=== PATIENT | male | born 1980 | race Caucasian/White ===

== ENCOUNTER 2016-08-03 14:45 | Emergency (ER) | payer OTHER, MEDICARE ==
[~2016-08-03] VITALS: Ht 160 cm; Wt 99.8 kg
--- NOTE | 2016-08-03 16:45 | ED GENERAL ADULT ---
History of Present Illness General Chief Complaint: Foot or Ankle Injury Stated Complaint: L FOOT INJURY Vital Signs & Intake/Output Vital Signs & Intake/Output Vital Signs Date Time Temp Pulse Resp B/P Pulse O2 O2 Flow FiO2 Ox Delivery Rate 08/03 1821 97.3 78 18 113/61 95 Room Air 08/03 1812 97.6 08/03 1648 96 08/03 1527 97.6 77 18 105/68 97 Room Air Allergies Coded Allergies: No Known Allergies (08/03/16) Reconcile Medications Ibuprofen 600 MG TABLET 1 TAB PO TID PRN PAIN with food Triage Note: PT REPORTING DISCOMFORT ON HIS LEFT FOOT. UNABLE TO OBTAIN CLEAR HX SECONDARY TO POOR COGNITION. PT SUFFERS OF TRISOMY 21. Past History Travel History Traveled to [place] past 21 day No Medical History Neurological: TRISOMY 21 Psychosocial History What is your primary language Swedish Tobacco Use: Never used Departure Departure Condition: Stable Referrals: ABDIEL PARRY MD (PCP/Family) Departure Forms: Customer Survey General Discharge Information Prescriptions: Current Visit Scripts Ibuprofen 1 TAB PO TID PRN PAIN #21 TAB with food
--- NOTE | 2016-08-03 16:48 | ED UPPER/LOWER EXTREMITY COMPL ---
History of Present Illness General Chief Complaint: Foot or Ankle Injury Stated Complaint: L FOOT INJURY Source: patient Exam Limitations: physical impairment Vital Signs & Intake/Output Vital Signs & Intake/Output Vital Signs Date Time Temp Pulse Resp B/P Pulse O2 O2 Flow FiO2 Ox Delivery Rate 08/03 1821 97.3 78 18 113/61 95 Room Air 08/03 1812 97.6 08/03 1648 96 08/03 1527 97.6 77 18 105/68 97 Room Air Allergies Coded Allergies: No Known Allergies (08/03/16) Reconcile Medications Ibuprofen 600 MG TABLET 1 TAB PO TID PRN PAIN with food Triage Note: PT REPORTING DISCOMFORT ON HIS LEFT FOOT. UNABLE TO OBTAIN CLEAR HX SECONDARY TO POOR COGNITION. PT SUFFERS OF TRISOMY 21. Triage Nurses Notes Reviewed? yes Onset: Abrupt Duration: constant Timing: single episode today Severity: moderate Severity Numbers: 5 HPI: Patient is a 36-year-old male with a past medical history of mental retardation who presents to emergency room with caregiver in which there is no mechanism injury noted by staff members however patient is complaining of acute onset today after waking up of left ankle and left foot pain. There is a noticeable limp with ambulation. Patient denies any knee pain and cannot offer mechanism of injury or how the incident had occurred. No skin laceration was noted no medications were given prior to arrival (SHAI SMITH) Past History Travel History Traveled to [place] past 21 day No Medical History Any Pertinent Medical History? see below for history Neurological: TRISOMY 21 Surgical History Surgical History: non-contributory Psychosocial History What is your primary language Arabic Tobacco Use: Never used Family History Hx Contributory? No (SHAI SMITH) Review of Systems Review of Systems Constitutional: Reports: no symptoms. EENTM: Reports: no symptoms. Respiratory: Reports: no symptoms. Cardiovascular: Reports: no symptoms. Gastrointestinal/Abdominal: Reports: no symptoms. Genitourinary: Reports: no symptoms. Musculoskeletal: Reports: see HPI, joint pain. Skin: Reports: no symptoms. Neurological/Psychological: Reports: no symptoms. Hematologic/Endocrine: Reports: no symptoms. Immunological: Reports: no symptoms. All Other Systems: Reviewed and Negative (SHAI SMITH) Physical Exam Physical Exam General Appearance: no apparent distress, alert, comfortable Neurologic/Tendon: normal sensation, normal motor functions, normal tendon functions, responds to pain, no evidence tendon injury Skin: intact, normal color, warm/dry Comments: Well-developed well-nourished patient in no apparent distress. HEENT: Atraumatic, extraocular motion intact Neck: Supple, FROM, no lymphadenopathy Back: FROM, Nontender Extremities: Left knee nontender full active range of motion normal inspection Left ankle normal inspection generalized point tenderness noted Left foot medial aspect of foot and plantar aspect of foot noted tenderness Pedal pulse +2 Left lower extremity dermatomes intact Neuro: Alert and oriented Skin: Warm & dry;No appreciable rash on exposed skin Psych: Mood affect normal, normal memory normal judgment. (SHAI SMITH) Progress Differential Diagnosis: arterial insufficiency, compartment syndrome, contusion, dislocation, DVT, fracture, gout, septic arthritis, sprain, tendon injury Plan of Care: Orders Procedure Date/time Status XRY-FOOT COMPLETE, LEFT 08/03 1700 Active XRY-ANKLE 3 OR MORE VIEWS L 08/03 1700 Active No osseous injury noted on x-ray findings. Masood wrap was placed to left ankle and foot with Aircast STIRRUP. PRE/Post neurovascular was intact. Patient'S core machine tender was strongly advised to follow disposition and plan (SHAI SMITH) Diagnostic Imaging: Viewed by Me: Radiology Read. Radiology Impression: no fracture Comments: PATIENT: ELLEN PRO PRESENT AGE: 36 PATIENT ACCOUNT NO: [id number] : 82 LOCATION: [facility] ORDERING PHYSICIAN: SHAI MONCADA SERVICE DATE: 08/03/16 EXAM TYPE: RAD - XRY-ANKLE 3 OR MORE VIEWS L; XRY-FOOT COMPLETE, LEFT EXAMINATION: ANKLE AND FOOT, LEFT CLINICAL INFORMATION: Pain. COMPARISON: None. TECHNIQUE: 3 views of the left foot and ankle. FINDINGS: Ankle: Bone mineral density is maintained without evidence of fracture or dislocation. No focal osseous lesions are seen. Joint space is maintained without productive or erosive changes. Foot: Bone mineral density is maintained without evidence of fracture or dislocation. No focal osseous lesions are seen. Joint space is maintained without productive or erosive changes. There is a pes planus deformity. IMPRESSION: No fracture or dislocation. No significant appearing degenerative changes. Pes planus deformity left foot. (SHAI MSITH) Departure Departure Disposition: HOME OR SELF CARE Condition: Stable Clinical Impression Primary Impression: Left ankle pain Secondary Impressions: Left foot pain Referrals: ABDIEL PARRY MD (PCP/Family) ASHLEY PAN,KULDEEP Lund Additional Instructions: As discussed begin icing the area directly 20 minutes every 2 hours. Begin to use the Masood wrap and the Aircast stirrup for stability support and swelling. Begin to elevate the foot for swelling. If symptoms worsen return to emergency room. If no better in one week follow-up with orthopedic Dr. RAMIREZ. Begin the prescription of ibuprofen if needed for pain and inflammation. Departure Forms: Customer Survey General Discharge Information Prescriptions: Current Visit Scripts Ibuprofen 1 TAB PO TID PRN PAIN #21 TAB with food (SHAI SMITH) PA/FAMILY INDEPENDENCE CASE MANAGER Co-Sign Statement Statement: ED Attending supervision documentation- [] I saw and evaluated the patient. I have also reviewed all the pertinent lab results and diagnostic results. I agree with the findings and the plan of care as documented in the PA's/FAMILY INDEPENDENCE CASE MANAGER's documentation. [X] I have reviewed the ED Record and agree with the PA's/FAMILY INDEPENDENCE CASE MANAGER's documentation. [] Additions or exceptions (if any) to the PAs/FAMILY INDEPENDENCE CASE MANAGER's note and plan are summarized below: [] (GUILLERMINA ROMANO DO)
--- NOTE | 2016-08-03 17:49 | RADIOLOGY REPORT ---
EXAMINATION: ANKLE AND FOOT, LEFT CLINICAL INFORMATION: Pain. COMPARISON: None. TECHNIQUE: 3 views of the left foot and ankle. FINDINGS: Ankle: Bone mineral density is maintained without evidence of fracture or dislocation. No focal osseous lesions are seen. Joint space is maintained without productive or erosive changes. Foot: Bone mineral density is maintained without evidence of fracture or dislocation. No focal osseous lesions are seen. Joint space is maintained without productive or erosive changes. There is a pes planus deformity. IMPRESSION: No fracture or dislocation. No significant appearing degenerative changes. Pes planus deformity left foot.
[2016-08-03] MEDS ORDERED: IBUPROFEN600 M1 PO (18:12)
[2016-08-03 18:21] VITALS: BP 113/61
== END 2016-08-03 18:20 ==
LOC: ERH 14:45
DX: M25.572 Pain in left ankle and joints of left foot (principal); M79.672 Pain in left foot
CPT/HCPCS: 73610-LT; 73630-LT